=== PATIENT | female | born 1955 | race Two or more races ===

== ENCOUNTER 2018-02-21 00:31 | Emergency (ER) | payer OTHER ==
[~2018-02-21] VITALS: Ht 162.6 cm; Wt 68.0 kg
[~2018-02-21 00:31] MED LIST: TRAMADOL HCL-AP1 TAB PO
[2018-02-21] MEDS ORDERED: TIROSINT112 MCG (00:37)
[2018-02-21] MEDS ORDERED: DILTIAZEM 24HR120 MG (00:37)
[2018-02-21] MEDS ORDERED: GLIPIZIDE10 MG (00:37)
[2018-02-21] MEDS ORDERED: TOPROL XL25 M1 (00:37)
[2018-02-21] MEDS ORDERED: ATORVASTATIN CA40 MG (00:38)
[2018-02-21] MEDS ORDERED: JANUMET XR 50-1 EAC1 (00:38)
[2018-02-21] MEDS ORDERED: ENALAPRIL MALEA10 MG (00:38)
[2018-02-21] MEDS ORDERED: OMEGA 3 1,0001 EACH (00:38)
[2018-02-21] MEDS ORDERED: MIRALAX510 GM PO (03:09)
== END 2018-02-21 14:01 | disposition home or self-care (01) ==
LOC: ER 00:31
DX: R10.84 Generalized abdominal pain (principal)

== ENCOUNTER 2018-02-25 22:57 | Emergency (ER) | payer OTHER ==
[~2018-02-25] VITALS: Ht 162.6 cm; Wt 68.0 kg
[~2018-02-25 22:57] MED LIST changes: +ATORVASTATIN CA40 MG; +DILTIAZEM 24HR120 MG; +ENALAPRIL MALEA10 MG; +GLIPIZIDE10 MG; +JANUMET XR 50-1 EAC1; +MIRALAX510 GM PO; +OMEGA 3 1,0001 EACH; +TIROSINT112 MCG; +TOPROL XL25 M1
== END 2018-02-26 07:08 | disposition home or self-care (01) ==
LOC: ER 22:57
DX: K75.89 Other specified inflammatory liver diseases (principal); G89.29 Other chronic pain; R10.31 Right lower quadrant pain

== ENCOUNTER 2023-12-07 10:13 | Emergency (ER) | payer OTHER ==
[~2023-12-07] VITALS: Ht 162.6 cm; Wt 58.5 kg
[2023-12-07] MEDS ORDERED: URSO250 MG (10:32)
[2023-12-07] MEDS ORDERED: LYRICA50 MG (10:32)
[2023-12-07 11:13] LABS: HEMOGLOBIN 12.3 g/dL (12.0-15.00); MEAN CELL VOLUME 93.6 fL (80.00-100.00); MEAN CORPUSCULAR HGB CONC 34.2 g/dl (32.0-36.0); PLATELET COUNT 208 K/uL (150-450); RED BLOOD COUNT 3.84 M/uL (4.00-6.00); RED CELL DISTRIBUTION WIDTH 13.9 % (11.5-14.5)
== END 2023-12-07 14:58 | disposition home or self-care (01) ==
LOC: ER 10:14
PROVIDERS: General Practice
DX: R22.1 Localized swelling, mass and lump, neck (principal); I10 Essential (primary) hypertension; E78.00 Pure hypercholesterolemia, unspecified; E11.9 Type 2 diabetes mellitus without complications; Z79.84 Long term (current) use of oral hypoglycemic drugs